=== PATIENT | female | born 1985 | race Caucasian/White ===

== ENCOUNTER 2018-10-10 11:46 | Day surgery (SDC) | payer OTHER ==
[2018-10-10 12:24] LABS: HEMATOCRIT 30.2 % (32.4-45.2); HEMOGLOBIN 10.1 GM/dL (10.7-15.3); MCH 28.3 pg (25.7-33.7); MCHC 33.5 g/dl (32.0-36.0); MEAN CELL VOLUME 84.6 fl (80-96); PLATELET COUNT 231 K/MM3 (134-434); RBC 3.57 M/mm3 (3.60-5.2); RDW 14.6 % (11.6-15.6); WHITE BLOOD COUNT 8.2 K/mm3 (4.0-10.0)
[2018-10-10 12:44] VITALS: TEMP 98.4
[2018-10-10 12:59] VITALS: BP 108/69; PULSE 75
[2018-10-10] MEDS ORDERED: FERRIC CARBOXYMALTOSE 750 MG in SODIUM CHLORIDE 250 ML IVPB ONE (13:00)
--- NOTE | 2018-12-05 11:32 | HP ---
DATE OF ADMISSION: 10/10/2018 CHIEF COMPLAINT: Iron deficiency anemia, 39 weeks . HISTORY OF PRESENT ILLNESS: Patient is a 33-year-old female at 39 weeks gestation who was diagnosed with iron deficiency anemia in the office. The patient did not tolerate oral iron and elected to undergo iron infusion therapy. PAST MEDICAL HISTORY: Insignificant except for iron deficiency anemia and . Estimated due date of is October 15, 2018. PRIOR SURGICAL HISTORY: None. SMOKING HISTORY: None. ALCOHOL USE: None. REVIEW OF SYSTEMS: Negative. ALLERGIES: STRAWBERRY and PINEAPPLE which give her hives. PHYSICAL EXAMINATION:Vital Signs: Temperature 98.4, pulse rate 88, blood pressure 107/63, respiratory rate 16. Weight 213 pounds. General: Awake, alert and oriented x3 in no acute distress. Lungs: Normal respirations. Heart: Regular rate and rhythm. Abdomen: Gravid. LABORATORY DATA: Hemoglobin was noted to be 10.1. ASSESSMENT AND PLAN: A 33-year-old 1, para 0, 39 weeks gestation in with iron deficiency anemia. Plan for IV iron infusion per protocol. ELKIN RESTREPO DO /[id number]
== END 2018-10-10 14:17 | disposition home or self-care (01) ==
LOC: JINFUSION 11:46
PROVIDERS: ATTEND Obstetrics & Gynecology
PROC: 3E033GC Introduction of Other Therapeutic Substance into Peripheral Vein, Percutaneous Approach (ICD-10-PCS; principal; 2018-10-10)
DX: O99.013 Anemia complicating pregnancy, third trimester (principal); Z3A.39 39 weeks gestation of pregnancy; D50.9 Iron deficiency anemia, unspecified
CPT/HCPCS: 36415; 85027; 96365; J1439

== ENCOUNTER 2018-10-14 04:50 | Inpatient (IN) | payer OTHER | END 2018-10-16 17:20 | disposition home or self-care (01) | LOC: JDEL 04:50 → JLDR 05:30 → J3W 14:43 ==

== ENCOUNTER 2022-06-15 11:40 | Emergency (ER) | payer OTHER ==
[2022-06-15 11:47] VITALS: BP 117/64; PULSE 84; RESP 18; TEMP 99.1; BMI 35.5
[2022-06-15] MEDS ORDERED: SODIUM CHLORIDE 1,000 ML IV STA (12:24)
[2022-06-15] MEDS ORDERED: METOCLOPRAMIDE HCL INJECTION 10 MG/2 ML VIAL IM ONE (12:24)
[2022-06-15] MEDS ORDERED: FAMOTIDINE 20 MG/50 ML IVPB 20 MG/50 ML MG IVPB ONE ×2 (12:32→13:01)
[2022-06-15] MEDS ORDERED: METOCLOPRAMIDE HCL INJECTION 10 MG/2 ML VIAL ONE (13:00)
[2022-06-15] MEDS ORDERED: METOCLOPRAMIDE HCL INJECTION 10 MG/2 ML VIAL IVPUSH ONE (13:05)
[2022-06-15 13:27] LABS: BASO % 0.1 % (0-2.0); EOS % 0.6 % (0-4.5); HEMOGLOBIN 10.2 GM/dL (10.7-15.3); MCH 27.5 pg (25.7-33.7); MCHC 34.2 g/dl (32.0-36.0); MEAN CELL VOLUME 80.4 fl (80-96); MEAN PLT VOLUME 7.2 fl (7.5-11.1); MONO % 5.7 % (3.8-10.2); NEUT % 82.6 % (42.8-82.8); PLATELET COUNT 277 10^3/uL (134-434); RBC 3.72 M/mm3 (3.60-5.2); RDW 14.2 % (11.6-15.6); WHITE BLOOD COUNT 9.9 K/mm3 (4.0-10.0)
[2022-06-15 13:52] LABS: ALBUMIN 2.6 g/dl (3.4-5.0); BLOOD UREA NITROGEN 8.5 mg/dL (7-18); CALCIUM 8.3 mg/dL (8.5-10.1)
[2022-06-15 13:56] LABS: CREATININE 0.5 mg/dL (0.55-1.3)
[2022-06-15 13:57] LABS: BILIRUBIN,TOTAL 0.3 mg/dL (0.2-1); TOT PROT 6.4 g/dl (6.4-8.2)
[2022-06-15 15:04] LABS: PH,URINE 5.5 (5.0-8.0); URINE APPEARANCE CLEAR; URINE BILIRUBIN NEGATIVE (NEGATIVE); URINE COLOR DK YELLOW; URINE GLUCOSE (UA) NEGATIVE (NEGATIVE); URINE KETONE 3+ (NEGATIVE); URINE LEUK ESTERASE NEGATIVE (NEGATIVE); URINE NITRITE NEGATIVE (NEGATIVE); URINE PROTEIN TRACE (NEGATIVE)
== END 2022-06-15 15:26 | disposition home or self-care (01) ==
LOC: JER 11:40
PROC: 3E033GC Introduction of Other Therapeutic Substance into Peripheral Vein, Percutaneous Approach (ICD-10-PCS; principal; 2022-06-15)
PROC: 3E033GC Introduction of Other Therapeutic Substance into Peripheral Vein, Percutaneous Approach (ICD-10-PCS; 2022-06-15)
PROC: 3E0337Z Introduction of Electrolytic and Water Balance Substance into Peripheral Vein, Percutaneous Approach (ICD-10-PCS; 2022-06-15)
DX: O98.512 Other viral diseases complicating pregnancy, second trimester (principal); A08.4 Viral intestinal infection, unspecified; K21.9 Gastro-esophageal reflux disease without esophagitis; R11.2 Nausea with vomiting, unspecified; Z3A.22 22 weeks gestation of pregnancy
CPT/HCPCS: 36415; 80053; 81003; 84702; 85025; 87086; 99284-25

== ENCOUNTER 2022-10-25 16:54 | Inpatient (IN) | payer OTHER ==
[2022-10-25 17:58] VITALS: BMI 35.8
[2022-10-25 18:11] LABS: BASO % 0.8 % (0-2.0); EOS % 1.3 % (0-4.5); HEMATOCRIT 24.1 % (32.4-45.2); HEMOGLOBIN 7.8 GM/dL (10.7-15.3); LYMPH % 20.3 % (8-40); MCH 23.7 pg (25.7-33.7); MCHC 32.2 g/dl (32.0-36.0); MEAN CELL VOLUME 73.5 fl (80-96); MEAN PLT VOLUME 6.8 fl (7.5-11.1); MONO % 7.4 % (3.8-10.2); NEUT % 70.2 % (42.8-82.8); PLATELET COUNT 259 10^3/uL (134-434); RBC 3.28 M/mm3 (3.60-5.2); RDW 15.3 % (11.6-15.6); WHITE BLOOD COUNT 8.5 K/mm3 (4.0-10.0)
[2022-10-25 18:29] LABS: POTASSIUM 3.9 mmol/L (3.5-5.1)
[2022-10-25 18:31] LABS: BLOOD UREA NITROGEN 10.1 mg/dL (7-18); CALCIUM 7.8 mg/dL (8.5-10.1)
[2022-10-25 18:34] LABS: CREATININE 0.6 mg/dL (0.55-1.3)
[2022-10-25] MEDS ORDERED: DINOPROSTONE 10 MG VAGINAL SUPPOSITORY VG ONE (19:00)
[2022-10-25] MEDS ORDERED: ELECTROLYTE-148 SOLN 1,000 ML IV SCH ×2 (19:00→22:00)
[2022-10-25 19:06] LABS: INR 0.92 (0.83-1.09); PROTHROMBIN TIME (PATIENT) 10.7 SEC (9.7-13.0)
[2022-10-25 19:09] LABS: ACTIVATED PTT 25.3 SECONDS (25.2-36.5)
[2022-10-25] MEDS ORDERED: PROMETHAZINE HCL 25 MG/1 ML VIAL IVPB ONE (21:58)
[2022-10-25] MEDS ORDERED: BUTORPHANOL TARTRATE 1 MG/ML VIAL IVPB PRN (21:58)
[2022-10-25] MEDS ORDERED: FENTANYL/BUPIVACAINE/NS/PF - PCEA - 50 ML DISP.SYRIN EP ONE (22:23)
[2022-10-25] MEDS ORDERED: LIDO 2%/EPI 1:200000 PRESRVFRE (20 ML SDVIAL) ONE (22:31)
[2022-10-25] MEDS ORDERED: BUPIVACAINE HCL/PF 0.25% (2.5MG/ML) 10 ML VIAL ONE (22:31)
[2022-10-25] MEDS ORDERED: NALOXONE HCL 0.4 MG/ML VIAL IVPUSH PRN (23:01)
[2022-10-25] MEDS ORDERED: FENTANYL/BUPIVACAINE/NS/PF - PCEA - 50 ML DISP.SYRIN EP SCH (23:15)
[2022-10-25] MEDS ORDERED: LIDOCAINE HCL 1% PRESERVATIVE FREE - 30ML VIAL ONE (23:50)
[2022-10-25] MEDS ORDERED: OXYTOCIN 20 UNITS in 0.9% NS 20 UNIT/1,000 ML INFUS.BAG IV ONE (23:50)
[2022-10-26] MEDS ORDERED: OXYTOCIN 20 UNITS in 0.9% NS 20 UNIT/1,000 ML INFUS.BAG IV SCH
[2022-10-26] MEDS ORDERED: IBUPROFEN 600 MG TABLET (FP) PO PRN
[2022-10-26] MEDS ORDERED: WITCH HAZEL 50% (TUCKS) 40 PAD/JAR PAD TP PRN
[2022-10-26] MEDS ORDERED: oxyCODONE HCL 5 MG TABLET PO PRN
[2022-10-26] MEDS ORDERED: BISACODYL 10 MG SUPP.RECT RC PRN
[2022-10-26] MEDS ORDERED: BENZOCAINE 20% 57 GM BOTTLE TP PRN
[2022-10-26] MEDS ORDERED: METHYLERGONOVINE MALEATE 0.2 MG/1 ML AMP IM PRN
[2022-10-26] MEDS ORDERED: BENZOCAINE 28 GM HEMORRHOIDAL OINTMENT TP PRN
[2022-10-26 00:50] LABS: CORD BASE EXCESS -5.7 mmol/L (0-2); CORD HCO3 19.4 mmHg (20-29); CORD PCO2 37.5 mmHg (30-78); CORD pH 7.332 (7.14-7.44)
[2022-10-26 00:51] LABS: CORD BASE EXCESS -5.6 mmol/L (0-2); CORD PCO2 39.9 mmHg (30-78); CORD pH 7.319 (7.14-7.44)
[2022-10-26] MEDS: ACETAMINOPHEN 325 MG TABLET (FP) PO PRN (05:19)
[2022-10-26] MEDS: FERROUS SO4 325 MG TABLET (FP) PO SCH ×3 (08:21→18:27)
[2022-10-26] MEDS: PRENATAL VITAMINS W/ FOLIC ACID TABLET (FP) PO SCH (09:28)
[2022-10-26] MEDS: LORATADINE 10 MG TABLET PO SCH (14:26)
[2022-10-26] MEDS: FLUTICASONE PROP 0.05% 16 GM NASAL SPRAY NS SCH (16:41)
[2022-10-27 07:54] LABS: BASO % 0.2 % (0-2.0); EOS % 1.5 % (0-4.5); HEMATOCRIT 21.1 % (32.4-45.2); MCH 23.6 pg (25.7-33.7); MCHC 31.5 g/dl (32.0-36.0); MEAN CELL VOLUME 75.1 fl (80-96); MEAN PLT VOLUME 7.2 fl (7.5-11.1); MONO % 7.7 % (3.8-10.2); NEUT % 63.6 % (42.8-82.8); PLATELET COUNT 242 10^3/uL (134-434); RBC 2.82 M/mm3 (3.60-5.2); RDW 15.1 % (11.6-15.6); WHITE BLOOD COUNT 11.2 K/mm3 (4.0-10.0)
[2022-10-27 07:55] LABS: HEMOGLOBIN 6.7 GM/dL (10.7-15.3)
[2022-10-27] MEDS: PRENATAL VITAMINS W/ FOLIC ACID TABLET (FP) PO SCH (09:33)
[2022-10-27] MEDS: FERROUS SO4 325 MG TABLET (FP) PO SCH ×3 (09:33→18:07)
[2022-10-27] MEDS: LORATADINE 10 MG TABLET PO SCH (09:33)
[2022-10-27] MEDS: FLUTICASONE PROP 0.05% 16 GM NASAL SPRAY NS SCH (09:34)
[2022-10-27] MEDS: ACETAMINOPHEN 325 MG TABLET (FP) PO PRN (12:17)
[2022-10-27] MEDS: SODIUM CHLORIDE NASAL SPRAY 44 ML BOTTLE NS PRN (12:46)
[2022-10-27] MEDS: PANTOPRAZOLE 40 MG TABLET PO SCH (12:46)
[2022-10-27] MEDS ORDERED: ALBUTEROL SO4 HFA INHALER IH PRN (17:41)
[2022-10-27] MEDS: CEFAZOLIN SODIUM 2 GM in DEXTROSE 5%-WATER 100 ML IVPB SCH (18:06)
[2022-10-27] MEDS: predniSONE 20 MG TABLET (UD) PO SCH (19:57)
[2022-10-27] MEDS: MONTELUKAST NA 10 MG TABLET PO SCH (21:35)
[2022-10-27] MEDS ORDERED: SENNOSIDES/DOCUSATE COMBO (SENNA PLUS) TABLET (UD) PO PRN (22:00)
[2022-10-28] MEDS: CEFAZOLIN SODIUM 2 GM in DEXTROSE 5%-WATER 100 ML IVPB SCH ×3 (01:40→10:09)
[2022-10-28 08:47] LABS: BASO % 0.1 % (0-2.0); HEMATOCRIT 27.9 % (32.4-45.2); LYMPH % 12.6 % (8-40); MCH 24.3 pg (25.7-33.7); MCHC 32.3 g/dl (32.0-36.0); MEAN CELL VOLUME 75.1 fl (80-96); MEAN PLT VOLUME 7.4 fl (7.5-11.1); MONO % 2.9 % (3.8-10.2); NEUT % 84.4 % (42.8-82.8); PLATELET COUNT 246 10^3/uL (134-434); RBC 3.72 M/mm3 (3.60-5.2); RDW 17.2 % (11.6-15.6); WHITE BLOOD COUNT 11.7 K/mm3 (4.0-10.0)
[2022-10-28 09:05] LABS: POTASSIUM 4.1 mmol/L (3.5-5.1)
[2022-10-28 09:07] LABS: ALBUMIN 2.2 g/dl (3.4-5.0); BLOOD UREA NITROGEN 7.6 mg/dL (7-18); CALCIUM 8.4 mg/dL (8.5-10.1)
[2022-10-28 09:10] LABS: CREATININE 0.6 mg/dL (0.55-1.3)
[2022-10-28 09:12] LABS: BILIRUBIN,TOTAL 0.2 mg/dL (0.2-1); TOT PROT 5.4 g/dl (6.4-8.2)
[2022-10-28] MEDS: PRENATAL VITAMINS W/ FOLIC ACID TABLET (FP) PO SCH (09:12)
[2022-10-28] MEDS: PANTOPRAZOLE 40 MG TABLET PO SCH (09:12)
[2022-10-28] MEDS: FERROUS SO4 325 MG TABLET (FP) PO SCH ×3 (09:12→17:11)
[2022-10-28] MEDS: LORATADINE 10 MG TABLET PO SCH (09:12)
[2022-10-28] MEDS: predniSONE 20 MG TABLET (UD) PO SCH (09:13)
[2022-10-28] MEDS: FLUTICASONE PROP 0.05% 16 GM NASAL SPRAY NS SCH (09:13)
[2022-10-28] MEDS: SODIUM CHLORIDE NASAL SPRAY 44 ML BOTTLE NS PRN (09:13)
[2022-10-28] MEDS: ACETAMINOPHEN 325 MG TABLET (FP) PO PRN (09:31)
[2022-10-28] MEDS: AMOX TR/POT CLAV 500MG/125MG TABLETS (FP) PO SCH (17:11)
[2022-10-28] MEDS: MONTELUKAST NA 10 MG TABLET PO SCH (22:23)
[2022-10-29] MEDS: ACETAMINOPHEN 325 MG TABLET (FP) PO PRN (05:43)
[2022-10-29] MEDS ORDERED: OXYTOCIN 30 UNITS in 0.9% NS 30 UNIT/500 ML INFUS.BAG IVPB SCH (07:45)
[2022-10-29] MEDS: AMOX TR/POT CLAV 500MG/125MG TABLETS (FP) PO SCH (10:00)
[2022-10-29] MEDS: FERROUS SO4 325 MG TABLET (FP) PO SCH ×2 (10:00→12:00)
[2022-10-29] MEDS: FLUTICASONE PROP 0.05% 16 GM NASAL SPRAY NS SCH (10:45)
[2022-10-29] MEDS: PANTOPRAZOLE 40 MG TABLET PO SCH (11:35)
[2022-10-29] MEDS: LORATADINE 10 MG TABLET PO SCH (11:35)
[2022-10-29] MEDS: PRENATAL VITAMINS W/ FOLIC ACID TABLET (FP) PO SCH (11:35)
[2022-10-29] MEDS: predniSONE 20 MG TABLET (UD) PO SCH (11:35)
[2022-10-29 11:49] LABS: MAGNESIUM 1.8 mg/dL (1.8-2.4)
[2022-10-29 11:53] LABS: PHOSPHOROUS 3.7 mg/dL (2.5-4.9)
[2022-10-29 12:23] VITALS: BP 134/84; PULSE 52; RESP 17; TEMP 97.8
== END 2022-10-29 15:20 | disposition home or self-care (01) | DRG 560 ==
LOC: JLDR 16:54 → J3W 10-26 01:49
PROVIDERS: ADMIT Obstetrics & Gynecology; ATTEND Obstetrics & Gynecology
PROC: 10E0XZZ Delivery of Products of Conception, External Approach (ICD-10-PCS; principal; 2022-10-26)
PROC: 30233N1 Transfusion of Nonautologous Red Blood Cells into Peripheral Vein, Percutaneous Approach (ICD-10-PCS; 2022-10-27)
DX: O41.03X0 Oligohydramnios, third trimester, not applicable or unspecified (principal); O69.81X0 Labor and delivery complicated by cord around neck, without compression, not applicable or unspecified; O90.81 Anemia of the puerperium; R05.9 Cough, unspecified; J45.909 Unspecified asthma, uncomplicated; Z3A.39 39 weeks gestation of pregnancy; Z37.0 Single live birth
CPT/HCPCS: 0241U-QW; 36415; 36430; 36600; 71045-TC-FY; 80048; 80053; 82803; 83735; 84100; 84443; 85025; 85610; 85730; 86780; 86900; 86922; 87635; 93005; 93010; 93306-TC; P9058